=== PATIENT | female | born 1940 | race Caucasian/White ===

== ENCOUNTER → 2017-03-04 | Outpatient (CLI) | payer OTHER, BC | END | disposition home or self-care (01) | LOC: RD 15:30 | DX: S80.01XA Contusion of right knee, initial encounter (principal); X58.XXXA Exposure to other specified factors, initial encounter; Y92.9 Unspecified place or not applicable ==

== ENCOUNTER → 2018-11-16 | Outpatient (CLI) | payer OTHER, BC | END | disposition home or self-care (01) | LOC: LB 12:16 | DX: M25.561 Pain in right knee (principal); M25.531 Pain in right wrist ==